=== PATIENT | male | born 1985 | race Caucasian/White ===

== ENCOUNTER 2017-12-02 15:24 | Observation (INO) | payer SELFPAY ==
[2017-12-02 15:48] VITALS: BMI 25.8
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
[2017-12-02 16:38] LABS: BASO % 0.5 % (0-2.0); EOS % 0.7 % (0-4.5); HEMATOCRIT 42.9 % (35.4-49); HEMOGLOBIN 14.8 GM/dL (11.7-16.9); LYMPH % 11.8 % (8-40); MCH 30.7 pg (25.7-33.7); MCHC 34.6 g/dl (32.0-35.9); MEAN CELL VOLUME 88.7 fl (80-96); MEAN PLT VOLUME 8.7 fl (7.5-11.1); MONO % 5.7 % (3.8-10.2); NEUT % 81.3 % (42.8-82.8); PLATELET COUNT 223 K/MM3 (134-434); RBC 4.83 M/mm3 (4.00-5.60); RDW 13.2 % (11.9-15.9); WHITE BLOOD COUNT 9.7 K/mm3 (4.0-10.0)
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
[2017-12-02 17:26] LABS: ALBUMIN 3.8 g/dl (3.4-5.0); ANION GAP 8 (8-16); BLOOD UREA NITROGEN 16 mg/dL (7-18); CHLORIDE 104 mmol/L (98-107); CO2 27 mmol/L (21-32); CREATININE 0.8 mg/dL (0.7-1.3); GLUCOSE,RANDOM 106 mg/dL (74-106); LIPASE 105 U/L (73-393); POTASSIUM 4.3 mmol/L (3.5-5.1); SGOT/AST 32 U/L (15-37); SGPT/ALT 68 U/L (12-78); SODIUM 139 mmol/L (136-145)
[2017-12-02 17:29] LABS: ALK PHOS 151 U/L (45-117); BILIRUBIN,TOTAL 1.1 mg/dL (0.2-1.0)
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
[2017-12-02] MEDS: HEPARIN NA (PORCINE) 5,000 UNITS/ML 1ML VIAL SQ SCH (22:11)
[2017-12-02] MEDS ORDERED: ACETAMINOPHEN 325 MG TABLET (FP) ONE (22:30)
[2017-12-02] MEDS ORDERED: HEPARIN NA (PORCINE) 5,000 UNITS/ML 1ML VIAL ONE (22:30)
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
[2017-12-02] MEDS ORDERED: ALBUTEROL SO4 0.083% IH SOL 2.5 MG/3 ML VIAL.NEB. NEB ONE (23:33)
[2017-12-02] MEDS: ACETAMINOPHEN 325 MG TABLET (FP) PO PRN (23:51)
[2017-12-03] MEDS: HEPARIN NA (PORCINE) 5,000 UNITS/ML 1ML VIAL SQ SCH ×3 (06:06→15:41)
--- NOTE | 2017-12-03 07:08 | PN ---
Physical Exam: SUBJECTIVE: Patient seen and examined OBJECTIVE: Vital Signs Period Temp Pulse Resp BP Sys/Schmitt Pulse Ox Last 24 Hr 97.8 F-98.6 F 70-84 18-20 110-142/63-84 98-98 GENERAL: The patient is awake, alert, and fully oriented, in no acute distress. HEAD: Normal with no signs of trauma. EYES: PERRL, extraocular movements intact, sclera anicteric, conjunctiva clear. No ptosis. ENT: Ears normal, nares patent, oropharynx clear without exudates, moist mucous membranes. NECK: Trachea midline, full range of motion, supple. LUNGS: Breath sounds equal, clear to auscultation bilaterally, no wheezes, no crackles, no accessory muscle use. HEART: Regular rate and rhythm, S1, S2 without murmur, rub or gallop. ABDOMEN: Soft, nontender, nondistended, normoactive bowel sounds, no guarding, no rebound, no hepatosplenomegaly, no masses. EXTREMITIES: 2+ pulses, warm, well-perfused, no edema. NEUROLOGICAL: Cranial nerves II through XII grossly intact. Normal speech, gait not observed. PSYCH: Normal mood, normal affect. SKIN: Warm, dry, normal turgor, no rashes or lesions noted Laboratory Results - last 24 hr 12/02/17 12/02/17 16:30 16:30 WBC 9.7 RBC 4.83 Hgb 14.8 Hct 42.9 MCV 88.7 MCH 30.7 MCHC 34.6 RDW 13.2 Plt Count 223 MPV 8.7 Neutrophils % 81.3 Lymphocytes % 11.8 Monocytes % 5.7 Eosinophils % 0.7 Basophils % 0.5 Sodium 139 Potassium 4.3 Chloride 104 Carbon Dioxide 27 Anion Gap 8 BUN 16 Creatinine 0.8 Creat Clearance w eGFR > 60 Random Glucose 106 Calcium 9.0 Total Bilirubin 1.1 H AST 32 ALT 68 Alkaline Phosphatase 151 H Total Protein 7.0 Albumin 3.8 Lipase 105 Active Medications Generic Name Dose Route Start Last Admin Trade Name Freq PRN Reason Stop Dose Admin Acetaminophen 650 mg 12/02/17 21:55 12/02/17 23:51 Tylenol - PO 650 mg Q6H PRN Administration FEVER Heparin Sodium (Porcine) 5,000 unit 12/02/17 22:00 12/03/17 06:06 Heparin - SQ Not Given TID BLANCA ASSESSMENT/PLAN:
[2017-12-03] MEDS ORDERED: SODIUM CHLORIDE 1,000 ML IV STA (08:00)
[2017-12-03] MEDS ORDERED: DEXTROSE 5%-NORMAL SALINE 1,000 ML IV SCH (08:00)
[2017-12-03 08:31] LABS: HEMOGLOBIN 14.5 GM/dL (11.7-16.9); MCH 30.3 pg (25.7-33.7); MCHC 33.8 g/dl (32.0-35.9); MEAN CELL VOLUME 89.7 fl (80-96); MEAN PLT VOLUME 8.9 fl (7.5-11.1); PLATELET COUNT 231 K/MM3 (134-434); RBC 4.79 M/mm3 (4.00-5.60); RDW 13.3 % (11.9-15.9); WHITE BLOOD COUNT 6.2 K/mm3 (4.0-10.0)
[2017-12-03 08:57] LABS: ALBUMIN 3.7 g/dl (3.4-5.0); ANION GAP 4 (8-16); BILIRUBIN,TOTAL 1.4 mg/dL (0.2-1.0); BLOOD UREA NITROGEN 15 mg/dL (7-18); CALCIUM 8.7 mg/dL (8.5-10.1); CHLORIDE 106 mmol/L (98-107); CO2 29 mmol/L (21-32); CREATININE 0.8 mg/dL (0.7-1.3); GLUCOSE,RANDOM 90 mg/dL (74-106); MAGNESIUM 2.1 mg/dL (1.8-2.4); PHOSPHOROUS 3.5 mg/dL (2.5-4.9); POTASSIUM 4.4 mmol/L (3.5-5.1); SGOT/AST 35 U/L (15-37); SGPT/ALT 65 U/L (12-78); SODIUM 139 mmol/L (136-145); TOT PROT 6.7 g/dl (6.4-8.2)
[2017-12-03 08:58] LABS: ALK PHOS 139 U/L (45-117)
[2017-12-03] MEDS ORDERED: INSULIN SLIDING SCALE (NOVOLOG) 1 VIAL SQ SCH (11:00)
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
[2017-12-03 14:37] VITALS: BP 111/72; PULSE 78; TEMP 98
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
[2017-12-03] MEDS ORDERED: HEPARIN NA (PORCINE) 5,000 UNITS/ML 1ML VIAL ONE (15:38)
[2017-12-03] MEDS ORDERED: ACETAMINOPHEN 325 MG TABLET (FP) ONE (15:38)
[2017-12-03] MEDS: ACETAMINOPHEN 325 MG TABLET (FP) PO PRN (15:41)
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
[2017-12-03] MEDS ORDERED: ACETAMINOPHEN 325 MG TABLET (FP) PO ONE (15:54)
[2017-12-03] MEDS ORDERED: IBUPROFEN 200 MG TABLET PO ONE (16:45)
[2017-12-03] MEDS ORDERED: IBUPROFEN 400 MG TABLET (FP) PO ONE ×2 (16:51→17:15)
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
--- NOTE | 2017-12-03 17:12 | DS ---
Physical Exam: SUBJECTIVE: Patient seen and examined OBJECTIVE: Vital Signs Period Temp Pulse Resp BP Sys/Schmitt Pulse Ox Last 24 Hr 98.0 F-98.6 F 64-84 16-18 85-142/49-80 98-98 PHYSICAL EXAM GENERAL: The patient is awake, alert, and fully oriented, in no acute distress. HEAD: Normal with no signs of trauma. ENT: moist mucous membranes. LUNGS: Breath sounds equal, clear to auscultation bilaterally, no wheezes, no crackles, no accessory muscle use. HEART: s1s2 normal ABDOMEN: Soft, nondistended, normoactive bowel sounds, no guarding, no rebound , EXTREMITIES: 2+ pulses, warm, well-perfused, no edema. SKIN: Warm, dry, LABS Laboratory Results - last 24 hr 12/02/17 12/03/17 12/03/17 16:30 08:17 08:17 WBC 6.2 D RBC 4.79 Hgb 14.5 Hct 43.0 MCV 89.7 MCH 30.3 MCHC 33.8 RDW 13.3 Plt Count 231 MPV 8.9 Sodium 139 139 Potassium 4.3 4.4 Chloride 104 106 Carbon Dioxide 27 29 Anion Gap 8 4 L BUN 16 15 Creatinine 0.8 0.8 Creat Clearance w eGFR > 60 > 60 POC Glucometer Random Glucose 106 90 Calcium 9.0 8.7 Phosphorus 3.5 Magnesium 2.1 Total Bilirubin 1.1 H 1.4 H D AST 32 35 ALT 68 65 Alkaline Phosphatase 151 H 139 H Total Protein 7.0 6.7 Albumin 3.8 3.7 Lipase 105 12/03/17 12/03/17 08:24 13:05 WBC RBC Hgb Hct MCV MCH MCHC RDW Plt Count MPV Sodium Potassium Chloride Carbon Dioxide Anion Gap BUN Creatinine Creat Clearance w eGFR POC Glucometer 149.32116 101.35246 Random Glucose Calcium Phosphorus Magnesium Total Bilirubin AST ALT Alkaline Phosphatase Total Protein Albumin Lipase CT abdomen 12/03/17: cylendrical metallic foreign body located within hepatic flexure, No evidence of bowel obstruction. No free intraperitoneal air or ascities.. HOSPITAL COURSE: Pt is a 32 yo M with PMHx of inguinal hernia s/p repair 1 month ago presenting with a hx of recurrent abdominal pain. Pt says the pain is intermittent, no known aggravating factors. Pt had initial SOB that has resolved spontaneously. No previous hx of SOB, or asthma in the past. No previous hx of seizures, syncope, palpitations or chest pain. No fever, chills, n/v/change in bowel habits, no dysuria or change in urinary habits. Was given food in the ED, which he tolerated fine. Examination and investigations were done. Patient found to have foreign body in colon. GI and surgery consult was obtained. No active intervention from GI and Surgery side. Patient is tolerating a diet and is passing flatus has no bowel movement in hospital. Patient is discharged in stable condition. Police is on bed side during discharge. Advise, Follow up with your surgeon. Take Tylenol for pain Look for foreign body in your stool. . Date of Admission:12/02/17 Date of Discharge: 12/03/17 Minutes to complete discharge: 40 Discharge Summary Reason For Visit: FOREIGN BODY Current Active Problems Abdominal pain (Acute) Foreign body (Acute) RLQ abdominal pain (Acute) RLQ abdominal tenderness (Acute) RLQ discomfort (Acute) Condition: Stable - Instructions Diet, Activity, Other Instructions: Advice look for foreign body in your stool Take tylenol for pain If develop nausea, vomiting, pain abdomen, distension than come to hospital or contact PCP Follow up with your surgeon who did hernia surgery in one week. Disposition: HOME - Home Medications Comprehensive Discharge Medication List: Ambulatory Orders Unobtainable [Unobtainable] 12/02/17 This patient is new to me today: Yes Date on this admission: 12/03/17 Emergency Visit: Yes ED Registration Date: 12/02/17 Care time: The patient presented to the Emergency Department on the above date and was hospitalized for further evaluation of their emergent condition. Critical Care patient: No - Discharge Referral Referred to [facility] No
== END 2017-12-03 17:50 | disposition home or self-care (01) ==
LOC: JER 15:24 → JERBED 20:23
PROVIDERS: ADMIT Internal Medicine; ATTEND Hospitalist
CPT/HCPCS: 36415; 74019-TC-FY; 74176-TC; 80053; 82962; 83690; 83735; 84100; 85025; 85027; 99285-25; G0378; J1644